=== PATIENT | male | born 1985 | race Two or more races ===

== ENCOUNTER 2023-07-24 19:08 | Emergency (ER) | payer BC, OTHER ==
[~2023-07-24] VITALS: Ht 160 cm; Wt 81.8 kg
[2023-07-24 20:09] LABS: ALBUMIN 3.9 G/DL (3.4-5.0); ANION GAP 10 (8-16); BLOOD UREA NITROGEN 12 MG/DL (7-18); BUN/CREATININE RATIO 12.6 (10.0-20.0); CHLORIDE 102 MMOL/L (99-107); CREATININE 0.95 MG/DL (0.60-1.10); GLUCOSE 118 MG/DL (70-104); LIPASE 24 U/L (16-77); SODIUM 138 MMOL/L (135-145); TOTAL CARBON DIOXIDE 26.1 MMOL/L (24-32); eCRCL 87 ML/MIN; eGFR 90 ML/MIN
[2023-07-24 20:10] LABS: BASOPHILS % (AUTO) 0.1 % (0-1); EOSINOPHILS % (AUTO) 0.1 % (0-6); HEMATOCRIT 42.8 % (42.0-52.0); HEMOGLOBIN 14.3 g/dl (14.0-17.9); LYMPHOCYTES # (AUTO) 0.7 X10'3 (1.1-4.8); LYMPHOCYTES % (AUTO) 3.6 % (21-51); MEAN CORPUSCULAR HEMOGLOBIN 29.1 PG (27.0-31.0); MEAN CORPUSCULAR HGB CONC 33.5 g/dL (33.0-36.5); MEAN CORPUSCULAR VOLUME 86.9 FL (78-98); MEAN PLATELET VOLUME 7.6 FL (7.4-10.4); MONOCYTES # (AUTO) 0.6 X10'3 (0-0.9); MONOCYTES % (AUTO) 3.3 % (2-12); NEUTROPHILS # (AUTO) 16.9 X10'3 (1.8-7.7); NEUTROPHILS % (AUTO) 92.9 % (42-75); PLATELET COUNT 287 X10'3 (140-440); RED BLOOD COUNT 4.93 X10'6 (4.70-6.10); RED CELL DISTRIBUTION WIDTH 14.2 % (11.5-14.5); WHITE BLOOD COUNT 18.2 X10'3 (4.5-11.0)
[2023-07-24 20:21] LABS: BILIRUBIN,URINE NEGATIVE (Neg); CLARITY,URINE CLEAR (Clear); COLOR,URINE YELLOW (Yellow); GLUCOSE, URINE NEGATIVE (Neg); KETONES,URINE 40 mg/dl (Neg); LEUKOCYTE ESTERASE ,URINE NEGATIVE (Neg); NITRITES, URINE NEGATIVE (Neg); OCCULT BLOOD,URINE NEGATIVE (Neg); PROTEIN,URINE NEGATIVE (Neg)
[2023-07-24 20:43] LABS: UA COLLECTION TYPE NON-SPECIFIED
[2023-07-24] MEDS ORDERED: iohexol 300mg/ml 100ml inj. ONE (21:18)
[2023-07-24] MEDS: morphine 4 MG/ML inj SYRINge IV ONE (21:47)
[2023-07-24] MEDS: normal saline 1000ML IV soln IVB ONE (21:48)
[2023-07-24] MEDS: acetaminophen 1,000mg/100ml IV 100 ML IV ONE (21:48)
[2023-07-24] MEDS: ondansetron/PF 4mg/2ml inj IV ONE (21:48)
[2023-07-24 22:37] LABS: ALANINE AMINOTRANSFERASE 19 U/L (12-78); ALBUMIN 3.6 G/DL (3.4-5.0); ALBUMIN/GLOBULIN RATIO 0.8 (1.1-1.5); ALKALINE PHOSPHATASE 85 IU/L (46-116); ASPARTATE AMINO TRANSFERASE 14 U/L (10-37); BILIRUBIN,DIRECT 0.3 MG/DL (0-0.3); BILIRUBIN,TOTAL 1.1 MG/DL (0.1-1.0); C-REACTIVE PROTEIN 4.95 MG/DL (0.0-0.5)
[2023-07-24 23:07] VITALS: TEMP 98.3
[2023-07-25] MEDS: piperacillin/tazo 4.5gm/100ml 100 ML IV SCH (00:28)
[2023-07-25] MEDS ORDERED: HYDR-3965 PO (00:58)
[2023-07-25] MEDS ORDERED: LEVO-65 PO (00:58)
[2023-07-25] MEDS ORDERED: METR-159 PO (00:58)
[2023-07-25 01:31] VITALS: BP 109/78; PULSE 79; RESP 16; O2SAT 100
[2023-07-25] MEDS ORDERED: piperacillin/tazo 4.5gm/100ml 100 ML IV SCH (08:00)
== END 2023-07-25 01:32 | disposition home or self-care (01) ==
LOC: ER 19:09
DX: K57.92 Diverticulitis of intestine, part unspecified, without perforation or abscess without bleeding (principal)
CPT/HCPCS: 36415; 74177; 80048; 80076; 81003; 83605; 83690; 84145; 85025; 86140; 87040; 96365; 96375; 99285; J0131; J2270; J2405; J2543; J3490; J7030; Q9967